=== PATIENT | male | born 1975 | race Caucasian/White ===

== ENCOUNTER 2020-01-21 22:02 | Emergency (ER) | payer BC ==
[~2020-01-21 22:02] MED LIST: CIPROFLOXACN500 MG PO; CRESTOR40 MG PO; LIPITOR40 MG PO; LISINOPRIL20 MG PO; NASONEX50 MCG/AC; NO
[2020-01-21] MEDS ORDERED: BACITRACIN3.5 GM TOP (22:49)
[2020-01-21] MEDS ORDERED: PERCOCET 5/325M1 TAB PO (22:49)
[2020-01-21 23:20] VITALS: BP 169/79
[2020-01-21] MEDS ORDERED: NORVASC5 M1 PO (23:25)
== END 2020-01-21 23:20 | disposition home or self-care (01) | DRG 935 ==
LOC: ED 22:02
DX: T21.22XA Burn of second degree of abdominal wall, initial encounter (principal); F17.200 Nicotine dependence, unspecified, uncomplicated; T31.0 Burns involving less than 10% of body surface; X12.XXXA Contact with other hot fluids, initial encounter; Y92.410 Unspecified street and highway as the place of occurrence of the external cause

== ENCOUNTER 2020-02-01 17:40 | Emergency (ER) | payer BC ==
[~2020-02-01 17:40] MED LIST changes: +BACITRACIN3.5 GM TOP; +NORVASC5 M1 PO; +PERCOCET 5/325M1 TAB PO
[2020-02-01] MEDS ORDERED: ZOLOFT25 MG PO (18:02)
[2020-02-01] MEDS ORDERED: REMERON15 MG PO (18:02)
[2020-02-01] MEDS ORDERED: DEPAKOTE500 MG PO (18:02)
[2020-02-01] MEDS ORDERED: DOXYCYC MONO100 M2 PO (18:09)
[2020-02-01] MEDS ORDERED: PERMETHRIN5 % EX (18:09)
[2020-02-01 18:39] VITALS: BP 175/87
== END 2020-02-01 18:49 | disposition home or self-care (01) | DRG 607 ==
LOC: ED 17:40
DX: B86 Scabies (principal); L03.90 Cellulitis, unspecified; I10 Essential (primary) hypertension; F17.210 Nicotine dependence, cigarettes, uncomplicated

== ENCOUNTER 2021-01-16 08:58 | Emergency (ER) | payer SELFPAY ==
[~2021-01-16] VITALS: Ht 172.7 cm; Wt 82.0 kg
[~2021-01-16 08:58] MED LIST changes: +DEPAKOTE500 MG PO; +DOXYCYC MONO100 M2 PO; +PERMETHRIN5 % EX; +REMERON15 MG PO; +ZOLOFT25 MG PO
[2021-01-16 09:13] VITALS: BP 176/91
[2021-01-16] MEDS ORDERED: NORVASC5 M1 PO (09:16)
[2021-01-16] MEDS ORDERED: OMEPRAZOLE20 MG PO (09:17)
[2021-01-16] MEDS ORDERED: HALDOL1 M1 PO (09:17)
[2021-01-16] MEDS ORDERED: ERYTHROMYCIN O3.5 GM OU (09:32)
[2021-01-16] MEDS ORDERED: HYDROCO/APAP1 TA9 PO (09:32)
== END 2021-01-16 09:40 | disposition home or self-care (01) | DRG 125 ==
LOC: ED 08:58
DX: H16.133 Photokeratitis, bilateral (principal); I10 Essential (primary) hypertension; F32.9 Major depressive disorder, single episode, unspecified; K21.9 Gastro-esophageal reflux disease without esophagitis; E78.00 Pure hypercholesterolemia, unspecified; F17.210 Nicotine dependence, cigarettes, uncomplicated; W89.0XXA Exposure to welding light (arc), initial encounter; Y93.89 Activity, other specified; Y92.89 Other specified places as the place of occurrence of the external cause; Y99.0 Civilian activity done for income or pay

== ENCOUNTER 2021-02-20 12:43 | Emergency (ER) | payer SELFPAY ==
[~2021-02-20] VITALS: Ht 172.7 cm; Wt 80.0 kg
[~2021-02-20 12:43] MED LIST changes: +ERYTHROMYCIN O3.5 GM OU; +HALDOL1 M1 PO; +HYDROCO/APAP1 TA9 PO; +OMEPRAZOLE20 MG PO
[2021-02-20 13:43] LABS: IMMATURE GRANULOCYTES 0.5 % (0.0-5.0); MEAN CELL VOLUME 90.3 fL CALC (80.0-100.0); MEAN CORPUSCULAR HGB CONC 32.1 g/dL CAL (32.0-36.0); NEUT# 5.55 thou/uL (1.82-7.42); RED BLOOD COUNT 5.28 mill/uL (4.70-6.10); RED CELL DISTRI WIDTH 12.9 % (11.5-15.5)
[2021-02-20 13:45] LABS: HEMATOCRIT 47.7 % (39.0-50.0); HEMOGLOBIN 15.3 g/dl (14.0-18.0)
[2021-02-20 13:54] LABS: ALBUMIN 4.3 g/dL (3.2-5.0); ALKALINE PHOSPHATASE 96 u/l (38-126); ANION GAP 14 (6-22 (CALC)); BILIRUBIN, TOTAL 0.3 mg/dL (0.0-1.4); BUN 12 mg/dL (9-20); BUN/CREATININE RATIO 17 (12-20 (CALC)); CARBON DIOXIDE 25 mmol/l (22-30); CHLORIDE 105 mmol/l (95-108); CREATININE 0.7 mg/dL (0.7-1.3); GFR > 60 ML/MIN (>=60 (CALC)); GFR FOR AFR.AMER. > 60 ML/MIN (>=60 (CALC)); LIPASE 160 u/l (23-300); POTASSIUM 4.4 mmol/l (3.5-5.1); SGOT/AST 30 u/l (17-59); SODIUM 139 mmol/l (137-146); TOTAL PROTEIN 8.2 g/dL (6.3-8.2)
[2021-02-20 14:31] LABS: URINE BILIRUBIN - DIPSTICK NEGATIVE (NEGATIVE); URINE BLOOD DIPSTICK NEGATIVE (NEGATIVE); URINE COLOR YELLOW; URINE GLUCOSE - DIPSTICK NEGATIVE (NEGATIVE); URINE KETONE NEGATIVE (NEGATIVE); URINE LEUK ESTERASE NEGATIVE (NEGATIVE); URINE PH 6.5 (4.5-8.0); URINE PROTEIN - DIPSTICK NEGATIVE (NEG-TRACE); URINE UROBILINOGEN - DIPSTICK 0.2 E.U./dL (0.2)
[2021-02-20 14:32] LABS: URINE NITRITE - DIPSTICK NEGATIVE (Negative)
[2021-02-20] MEDS ORDERED: MEDDOSEPAK PO (14:38)
[2021-02-20] MEDS ORDERED: VENTOLIN HFA IN (14:38)
[2021-02-20] MEDS ORDERED: ZPAK PO (14:38)
[2021-02-20 15:18] VITALS: BP 150/74
== END 2021-02-20 15:21 | disposition home or self-care (01) | DRG 552 ==
LOC: ED 12:43
DX: M54.41 Lumbago with sciatica, right side (principal); J40 Bronchitis, not specified as acute or chronic; I10 Essential (primary) hypertension; F32.9 Major depressive disorder, single episode, unspecified; K21.9 Gastro-esophageal reflux disease without esophagitis; E78.00 Pure hypercholesterolemia, unspecified; F17.210 Nicotine dependence, cigarettes, uncomplicated; Z20.822 Contact with and (suspected) exposure to COVID-19

== ENCOUNTER 2021-03-19 00:25 | Emergency (ER) | payer SELFPAY ==
[~2021-03-19] VITALS: Ht 172.7 cm; Wt 68.0 kg
[~2021-03-19 00:25] MED LIST changes: +MEDDOSEPAK PO; +VENTOLIN HFA IN; +ZPAK PO
[2021-03-19 01:03] LABS: IMMATURE GRANULOCYTES 0.8 % (0.0-5.0); MEAN CELL VOLUME 91.3 fL CALC (80.0-100.0); MEAN CORPUSCULAR HGB 29.3 pG CALC (26.0-32.0); MEAN CORPUSCULAR HGB CONC 32.1 g/dL CAL (32.0-36.0); NEUT# 8.47 thou/uL (1.82-7.42); RED BLOOD COUNT 4.27 mill/uL (4.70-6.10); RED CELL DISTRI WIDTH 13.5 % (11.5-15.5)
[2021-03-19 01:06] LABS: HEMOGLOBIN 12.5 g/dl (14.0-18.0)
[2021-03-19] MEDS ORDERED: SEROQUEL100 MG PO (01:06)
[2021-03-19] MEDS ORDERED: XANAX1 MG PO (01:07)
[2021-03-19 01:23] LABS: ALBUMIN 4.3 g/dL (3.2-5.0); ALKALINE PHOSPHATASE 90 u/l (38-126); ANION GAP 15 (6-22 (CALC)); BILIRUBIN, TOTAL 0.3 mg/dL (0.0-1.4); BUN 23 mg/dL (9-20); BUN/CREATININE RATIO 15 (12-20 (CALC)); CARBON DIOXIDE 22 mmol/l (22-30); CHLORIDE 111 mmol/l (95-108); CREATININE 1.5 mg/dL (0.7-1.3); ETHYL ALCOHOL 0 mg/dl (0-30); GFR 50 ML/MIN (>=60 (CALC)); GFR FOR AFR.AMER. > 60 ML/MIN (>=60 (CALC)); POTASSIUM 4.5 mmol/l (3.5-5.1); SGOT/AST 34 u/l (17-59); SODIUM 144 mmol/l (137-146); TOTAL PROTEIN 7.7 g/dL (6.3-8.2)
--- NOTE | 2021-03-19 01:23 | NUR ---
BROUGHT PT TO PERFORM CT'S. STARTED TO SCAN THE PT BUT HE WOULD NOT STOP TALKING AND SAT UP DURING THE THE SCAN. HAD TO STOP AND ASK HIM TO LAY DOWN BUT HE REFUSED AND GOT UP OFF THE CT TABLE. CALLED THE SPOOLING OPERATOR FOR [facility] [employer], NOTIFIED ED AND JEREMY SHOWED UP @0115HR WITNESSED THE PT ACTING OUT. SHE PROCEEDED TO TAKE THE PT BACD TO ED.
[2021-03-19 03:33] VITALS: BP 155/74
== END 2021-03-19 03:42 | DRG 605 ==
LOC: ED 00:25
PROVIDERS: Emergency Medicine
PROC: 0HQ1XZZ Repair Face Skin, External Approach (ICD-10-PCS; principal; 2021-03-19)
DX: S01.412A Laceration without foreign body of left cheek and temporomandibular area, initial encounter (principal); S00.411A Abrasion of right ear, initial encounter; S50.311A Abrasion of right elbow, initial encounter; F19.10 Other psychoactive substance abuse, uncomplicated; I10 Essential (primary) hypertension; F32.9 Major depressive disorder, single episode, unspecified; K21.9 Gastro-esophageal reflux disease without esophagitis; E78.00 Pure hypercholesterolemia, unspecified; F17.200 Nicotine dependence, unspecified, uncomplicated; Y09 Assault by unspecified means; Y93.89 Activity, other specified; Y92.481 Parking lot as the place of occurrence of the external cause

== ENCOUNTER 2021-07-13 14:26 | Emergency (ER) | payer SELFPAY ==
[~2021-07-13] VITALS: Ht 172.7 cm; Wt 85.0 kg
[~2021-07-13 14:26] MED LIST changes: +SEROQUEL100 MG PO; +XANAX1 MG PO
[2021-07-13] MEDS ORDERED: ADDERALL20 MG PO (14:38)
[2021-07-13] MEDS ORDERED: HALDOL1 M1 PO (14:39)
[2021-07-13] MEDS ORDERED: KLONOPIN1 MG PO (14:39)
[2021-07-13 15:56] LABS: URINE BILIRUBIN - DIPSTICK NEGATIVE (NEGATIVE); URINE BLOOD DIPSTICK NEGATIVE (NEGATIVE); URINE COLOR YELLOW; URINE GLUCOSE - DIPSTICK NEGATIVE (NEGATIVE); URINE KETONE TRACE mg/dL (NEGATIVE); URINE LEUK ESTERASE NEGATIVE (NEGATIVE); URINE PROTEIN - DIPSTICK NEGATIVE (NEG-TRACE); URINE UROBILINOGEN - DIPSTICK 0.2 E.U./dL (0.2)
[2021-07-13 15:57] LABS: URINE NITRITE - DIPSTICK NEGATIVE (Negative)
[2021-07-13 16:55] VITALS: BP 146/90
== END 2021-07-13 16:55 | disposition home or self-care (01) | DRG 552 ==
LOC: ED 14:26
DX: M54.50 Low back pain, unspecified (principal); I10 Essential (primary) hypertension; K21.9 Gastro-esophageal reflux disease without esophagitis; F31.9 Bipolar disorder, unspecified; F41.9 Anxiety disorder, unspecified; F17.210 Nicotine dependence, cigarettes, uncomplicated; W11.XXXA Fall on and from ladder, initial encounter; Y93.H2 Activity, gardening and landscaping; Y92.007 Garden or yard of unspecified non-institutional (private) residence as the place of occurrence of the external cause

== ENCOUNTER 2021-10-07 19:12 | Emergency (ER) | payer SELFPAY ==
[~2021-10-07] VITALS: Ht 172.7 cm; Wt 74.0 kg
[~2021-10-07 19:12] MED LIST changes: +ADDERALL20 MG PO; +KLONOPIN1 MG PO
[2021-10-07] MEDS ORDERED: NORVASC2.5 M1 PO (19:34)
[2021-10-07 20:10] LABS: HEMATOCRIT 39.5 % (39.0-50.0); HEMOGLOBIN 12.9 g/dl (14.0-18.0); IMMATURE GRANULOCYTES 0.1 % (0.0-5.0); MEAN CORPUSCULAR HGB 29.4 pG CALC (26.0-32.0); MEAN CORPUSCULAR HGB CONC 32.7 g/dL CAL (32.0-36.0); NEUT# 6.03 thou/uL (1.82-7.42); RED BLOOD COUNT 4.39 mill/uL (4.70-6.10); RED CELL DISTRI WIDTH 13.7 % (11.5-15.5)
[2021-10-07 20:16] LABS: URINE BLOOD DIPSTICK MODERATE (NEGATIVE); URINE COLOR YELLOW; URINE GLUCOSE - DIPSTICK NEGATIVE (NEGATIVE); URINE KETONE TRACE mg/dL (NEGATIVE); URINE LEUK ESTERASE NEGATIVE (NEGATIVE); URINE PH 5.5 (4.5-8.0); URINE PROTEIN - DIPSTICK TRACE mg/dL (NEG-TRACE); URINE SPECIFIC GRAVITY 1.025; URINE UROBILINOGEN - DIPSTICK 0.2 E.U./dL (0.2)
[2021-10-07 20:30] LABS: ALBUMIN 4.2 g/dL (3.2-5.0); ALKALINE PHOSPHATASE 108 u/l (38-126); BUN 27 mg/dL (9-20); BUN/CREATININE RATIO 19 (12-20 (CALC)); CARBON DIOXIDE 22 mmol/l (22-30); CHLORIDE 110 mmol/l (95-108); CREATININE 1.4 mg/dL (0.7-1.3); ETHYL ALCOHOL 0 mg/dl (0-30); GFR 54 ML/MIN (>=60 (CALC)); GFR FOR AFR.AMER. > 60 ML/MIN (>=60 (CALC)); MAGNESIUM 1.9 mg/dL (1.6-2.3); SGOT/AST 52 u/l (17-59); SODIUM 144 mmol/l (137-146); TOTAL PROTEIN 8.2 g/dL (6.3-8.2)
[2021-10-07 20:31] LABS: ANION GAP 16 (6-22 (CALC)); BILIRUBIN, TOTAL 0.6 mg/dL (0.0-1.4); POTASSIUM 3.5 mmol/l (3.5-5.1)
[2021-10-07 20:32] LABS: URINE BILIRUBIN - DIPSTICK SMALL (NEGATIVE); URINE NITRITE - DIPSTICK NEGATIVE (Negative)
[2021-10-07 20:46] LABS: URINE RBC 50-100 RBC/hpf (0-5)
[2021-10-07 20:47] LABS: URINE BACTERIA FEW hpf; URINE SQUAMOUS EPITHELIAL CELL FEW EPI/hpf (0-FEW)
[2021-10-07 23:20] VITALS: BP 133/61
== END 2021-10-07 23:20 | disposition home or self-care (01) | DRG 897 ==
LOC: ED 19:12
PROVIDERS: Family Medicine
DX: F15.10 Other stimulant abuse, uncomplicated (principal); I10 Essential (primary) hypertension; K21.9 Gastro-esophageal reflux disease without esophagitis; E78.00 Pure hypercholesterolemia, unspecified; F31.9 Bipolar disorder, unspecified; F41.9 Anxiety disorder, unspecified; F17.200 Nicotine dependence, unspecified, uncomplicated